=== PATIENT | female | born 1975 | race Caucasian/White ===

== ENCOUNTER 2016-02-19 07:41 | Day surgery (SDC) | payer SELFPAY ==
[2016-02-12 19:26] VITALS: BMI 29.0
[2016-02-19] MEDS ORDERED: HEPARIN NA (PORCINE) 5,000 UNITS/ML 1ML VIAL ONE (07:56)
[2016-02-19] MEDS ORDERED: HEPARIN NA (PORCINE) 5,000 UNITS/ML 1ML VIAL SQ ONE (08:20)
[2016-02-19] MEDS ORDERED: MIDAZOLAM HCL 2 MG/2 ML SINGLE DOSE VIAL ONE (08:43)
[2016-02-19] MEDS ORDERED: SUCCINYLCHOLINE CHLORIDE 200 MG/10 ML VIAL ONE (08:43)
[2016-02-19] MEDS ORDERED: PROPOFOL 20 ML ONE ×2 (08:43→10:05)
[2016-02-19] MEDS ORDERED: ROCURONIUM BROMIDE 50 MG/5 ML VIAL ONE ×3 (08:43→12:37)
[2016-02-19] MEDS ORDERED: DEXAMETHASONE SOD PHOSPHATE 4 MG/1 ML VIAL ONE (08:50)
[2016-02-19] MEDS ORDERED: ONDANSETRON 4 MG/2 ML VIAL ONE (08:50)
[2016-02-19] MEDS ORDERED: LIDOCAINE HCL 1%, 10 MG/ML (20ML VIAL) ONE (09:35)
[2016-02-19] MEDS ORDERED: LIDOCAINE 1%-EPI 1:100,000 30 ML MDV IJ ONE (09:35)
[2016-02-19] MEDS ORDERED: EPINEPHrine/PF 1 MG/1 ML (1:1,000) AMPULE ONE (09:36)
[2016-02-19] MEDS ORDERED: ceFAZolin SODIUM 1 GM VIAL ONE (09:52)
[2016-02-19] MEDS ORDERED: LIDOCAINE 1%/EPI 1:100000 (50 ML MULTI DOSE VIAL) INF ONE (10:44)
[2016-02-19] MEDS ORDERED: HYDROmorphone HCL/PF 1 MG/ML VIAL (FOR PYXIS CHARGING ONLY) ONE ×2 (11:11→13:54)
[2016-02-19] MEDS ORDERED: GLYCOPYRROLATE 0.2 MG/1 ML VIAL ONE (13:35)
[2016-02-19] MEDS ORDERED: NEOSTIGMINE METHYLSULFATE 0.5 MG/ML - 10 ML MDV ONE (13:35)
[2016-02-19] MEDS ORDERED: PROMETHAZINE HCL 25 MG/1 ML VIAL IVPUSH ONE ×2 (14:00→14:08)
[2016-02-19] MEDS ORDERED: PROMETHAZINE HCL 25 MG/1 ML VIAL ONE (14:02)
[2016-02-19] MEDS ORDERED: ACETAMINOPHEN INJECTION 100 ML IVPB ONE (14:10)
[2016-02-19] MEDS ORDERED: ONDANSETRON 4 MG/2 ML VIAL IVPB PRN (14:11)
[2016-02-19] MEDS ORDERED: morphine CARPU-JECT 10 MG/1 ML DISP.SYRIN IVPUSH PRN (14:11)
[2016-02-19] MEDS ORDERED: ACETAMINOPHEN 1000 MG/100 ML VIAL (NON FORMULARY) IVPB ONE ×2 (14:15→14:16)
[2016-02-19] MEDS ORDERED: LACTATED RINGERS SOLUTION 1,000 ML IV SCH ×2 (14:15→14:30)
[2016-02-19] MEDS ORDERED: HYDROmorphone HCL CARPU-JECT 1 MG/1 ML DISP.SYRIN IVPUSH PRN (14:16)
[2016-02-19] MEDS ORDERED: PROMETHAZINE HCL 25 MG/1 ML VIAL IVPUSH PRN (14:16)
[2016-02-19] MEDS ORDERED: HYDROmorphone HCL CARPU-JECT 1 MG/1 ML DISP.SYRIN IVPUSH ONE ×2 (14:50→15:10)
[2016-02-19] MEDS ORDERED: HYDROmorphone HCL CARPU-JECT 1 MG/1 ML DISP.SYRIN ONE (14:52)
--- NOTE | 2016-02-19 15:39 | OP ---
DATE OF OPERATION: 02/19/2016 TITLE OF PROCEDURE: Abdominoplasty with bilateral flank liposuction. Excision of sebaceous cyst on neck. PREOPERATIVE DIAGNOSES: Sebaceous cyst on neck. Abdominal lipodystrophy. POSTOPERATIVE DIAGNOSES: Sebaceous cyst on neck. Abdominal lipodystrophy. PROCEDURE: The patient is marked in the holding area. Risks, benefits and alternatives were discussed. She is awake and aware of all incisions and resulting scars. She is then brought to the operating room and placed in supine position. Ancef 2 g is given preoperatively and sequential compression stockings and BONNIE hose are applied. The patient had been given 5000 units of subcutaneous heparin preoperatively. Pressure points are carefully checked and padded by the surgical and anesthesia teams. She is then prepped and draped in the standard surgical fashion. The neck is addressed, first. A timeout is called. Patient, procedure, side and sites are verified. Incision is made over an existing flexion crease of the anterolateral right neck through which a subcutaneous cyst is identified and is dissected. The wound is copiously irrigated. Hemostasis is achieved and closure is performed in a series of interrupted 6-0 nylon suture. Attention is then directed toward the abdomen. Incision is made along the inferior border of the skin resection paddle, at which point dissection is carried down to the level of the abdominal wall fascia. Dissection is then carried to the level of the umbilicus which is circumcised and dissected on a wide fibrofatty stalk. The dissection is then continued to the xiphoid process in the midline and bilateral costal margins. A midline plication is then performed first with a series of interrupted buried [id number] 1 Prolene suture in the midline plication, followed by a running locking 1 Prolene suture both above and below the umbilicus leaving adequate space for the umbilicus for translocation. Hemostasis is meticulously achieved. The patient is brought to a flexed 30-degree position where the flap is transposed and excess skin and fat is removed. The flap is then inverted and using scissors, the sub-Hong fat is resected uniformly. Hemostasis is meticulously achieved once again. Copious irrigation is performed with normal saline, after which the skin is redraped and the position of the umbilicus is marked. A Star Trek pattern skin incision is made and a core of fat is removed from the abdominoplasty fat. The umbilicus is then translocated and secured in position. There are two 3-0 Biosyn sutures tacking the stalk to the lateral fascia. It should be noted also that 2 small transverse running buried 0 Prolene sutures are placed on either side of the umbilicus to correct a small bulge that was noted upon initial closure. This adequately corrected the problem. A 6 o'clock notch is removed from the umbilicus where the 6 o'clock flap of the Star Trek pattern is then inset into the base of the notch with a series of interrupted 4-0 nylon suture. The umbilicus is then re-inset with a series of interrupted buried deep dermal 3-0 Monocryl suture, followed by a running 5-0 nylon suture. A size 10 flat SHELLY drain is brought out through the lateral extent of the incision on the right side. It is going to the superior recess of the wound on the left side, staying in the lower recess of the wound. Closure is then performed of the flap to the inferior border of the skin wound with a series of interrupted superficial fascial Hong layer buried 2-0 Vicryl suture, followed by a series of interrupted buried deep dermal 3-0 Monocryl suture. Prior to final closure, liposuction tumescence is performed. A total of 300 mL of tumescent fluid is injected into each side of the flanks. The tumescence is given a full 20 minutes for hemostatic effect. Closure of the abdominal wound is continued. The drains are secured with 2-0 silk drain suture and placed to bulb suction, after which using a 4-mm cannula, liposuction is performed of the lower posterior flanks. A total lipoaspirate of 300 mL from the right side is yielded and 400 mL from the left side. The closure is then finished with a running subcuticular 3-0 Monocryl suture. Steri-Strips are applied. Abdominal binder is applied. Drains are placed to bulb suction. Awoken from anesthesia and maintained in a flexed position. Transferred to recovery without complication. JULIA DING M.D. [id number]
[2016-02-19] MEDS ORDERED: morphine CARPU-JECT 4 MG/1 ML DISP.SYRIN IVPUSH PRN (16:40)
[2016-02-19] MEDS ORDERED: HYDROmorphone *PCA* 10MG/50ML DISP.SYRIN PCA SCH (17:00)
[2016-02-20] MEDS ORDERED: HEPARIN NA (PORCINE) 5,000 UNITS/ML 1ML VIAL SQ SCH (06:00)
[2016-02-20] MEDS ORDERED: PROMETHAZINE HCL 25 MG/1 ML VIAL IVPB ONE (06:15)
[2016-02-20 06:29] VITALS: BP 122/68; PULSE 76; TEMP 98
[2016-02-20] MEDS ORDERED: ONDANSETRON 4 MG/2 ML VIAL IVPB PRN (08:50)
--- NOTE | 2016-02-20 11:13 | PN ---
Progress Note (short form) - Note Progress Note: 40F POD1 s/p abdominoplasty under GA-ETT with dilaudid IV INSURANCE BILLING CLERK for post op pain. Patient is doing well, INSURANCE BILLING CLERK d/c'd today, reports no anesthetic complications, AVSS.
[2016-02-20] MEDS ORDERED: OXYCODONE/APAP 5/325MG COMBO TABLET PO PRN (11:14)
--- NOTE | 2016-02-25 14:44 | PATH ---
Surgical Pathology Report Patient Name: ADOLFO HANKINS [facility]. Rec. #: [id number] /Age/Gender: 1975 (Age: 40) / F Account: [id number] Location: [facility] AMBULATORY Taken: 02/19/2016 Received: 02/19/2016 Reported: 02/25/2016 Physicians: Manuel Maldonado Specimen(s) Received A: RIGHT NECK CYST B: ABDOMINAL TISSUE Clinical History Cosmetic Final Diagnosis A. NECK, RIGHT, CYST, EXCISION: EPIDERMAL INCLUSION CYST. B. ABDOMINAL TISSUE, ABDOMINOPLASTY: SKIN AND ADIPOSE TISSUE, DESCRIBED (GROSS EXAMINATION ONLY). Electronically Signed Theodora Young M.D. Gross Description A. Received in formalin, labeled "right neck cyst," is a 1.5 x 0.6 x 0.2 cm willis-yellow, irregular, unoriented portion of soft tissue, consistent with a cyst. The specimen is serially sectioned and entirely submitted in one cassette. B. Received in formalin, labeled "abdominal tissue," is a 1144 g aggregate of 2 willis, triangular portions of unoriented skin with underlying soft tissue. The specimens measure 28.0 x 20.0 x 5.5 cm in aggregate. The epidermal surface from one of the portions displays a 5 cm in greatest dimension tattoo. Sectioning reveals unremarkable yellow, lobulated adipose tissue. No sections are submitted, gross only. 02/20/2016 saudi02/20/2016
== END 2016-02-20 14:02 | disposition home or self-care (01) ==
LOC: FASU 07:41 → FM/S 16:04 → FASU 02-20 14:02
PROVIDERS: ATTEND Plastic Surgery
PROC: 0HB4XZX Excision of Neck Skin, External Approach, Diagnostic (ICD-10-PCS; 2016-02-19)
PROC: 0J080ZZ Alteration of Abdomen Subcutaneous Tissue and Fascia, Open Approach (ICD-10-PCS; principal; 2016-02-19 09:56)
PROC: 0J083ZZ Alteration of Abdomen Subcutaneous Tissue and Fascia, Percutaneous Approach (ICD-10-PCS; 2016-02-19 09:56)
DX: L72.3 Sebaceous cyst (principal)
CPT/HCPCS: 84703; 88300-TC; 88304-TC; 94760; J1644

== ENCOUNTER 2020-03-03 06:12 | Day surgery (SDC) | payer SELFPAY ==
[2020-02-26 13:44] VITALS: BMI 29.3
[2020-03-03] MEDS ORDERED: BUPIVACAINE HCL/PF 0.25% (2.5MG/ML) 10 ML VIAL ONE (07:27)
[2020-03-03] MEDS ORDERED: LIDOCAINE HCL 1%, 10 MG/ML (20ML VIAL) ONE ×2 (07:27→08:15)
[2020-03-03] MEDS ORDERED: EPINEPHrine/PF 1 MG/1 ML (1:1,000) AMPULE ONE ×2 (07:27→08:15)
[2020-03-03] MEDS ORDERED: ROCURONIUM BROMIDE 50 MG/5 ML SYRINGE ONE ×2 (07:39→10:37)
[2020-03-03] MEDS ORDERED: MIDAZOLAM HCL 2 MG/2 ML SINGLE DOSE VIAL ONE ×2 (07:39)
[2020-03-03] MEDS ORDERED: fentaNYL CITRATE 250 MCG/5 ML VIAL ONE (07:39)
[2020-03-03] MEDS ORDERED: HYDROmorphone HCL/PF 1 MG/ML VIAL ONE (07:39)
[2020-03-03] MEDS ORDERED: PROPOFOL 20 ML ONE ×8 (07:39→12:32)
[2020-03-03] MEDS ORDERED: ONDANSETRON 4 MG/2 ML VIAL IVPUSH PRN (08:05)
[2020-03-03] MEDS ORDERED: oxyCODONE HCL 5 MG TABLET PO PRN ×3 (08:05→14:14)
[2020-03-03] MEDS ORDERED: LACTATED RINGERS SOLUTION 1,000 ML IV SCH ×2 (08:15→14:15)
[2020-03-03] MEDS ORDERED: NEOSTIGMINE METHYLSULFATE 0.5 MG/1 ML - 10 ML MDV ONE (13:26)
[2020-03-03] MEDS ORDERED: BACITRACIN 15 GM TUBE TOPICAL OINTMENT ONE (13:46)
[2020-03-03] MEDS ORDERED: ONDANSETRON 4 MG/2 ML VIAL IVPB PRN (14:14)
[2020-03-03] MEDS ORDERED: MEPERIDINE HCL 50 MG/ML VIAL IVPUSH ONE (14:25)
[2020-03-03] MEDS ORDERED: ONDANSETRON 4 MG/2 ML VIAL ONE (14:27)
[2020-03-03] MEDS ORDERED: MEPERIDINE HCL 50 MG/ML VIAL ONE (14:37)
[2020-03-03] MEDS ORDERED: PROMETHAZINE HCL 25 MG/1 ML VIAL ONE (16:07)
[2020-03-03] MEDS ORDERED: oxyCODONE HCL 5 MG TABLET ONE (16:18)
[2020-03-03 16:27] VITALS: TEMP 97.8
[2020-03-03 17:33] VITALS: BP 111/67; PULSE 72
[2020-03-04] MEDS ORDERED: PANTOPRAZOLE 40 MG TABLET PO SCH (10:00)
== END 2020-03-03 17:25 | disposition home or self-care (01) ==
LOC: FASU 06:12
PROVIDERS: ATTEND Plastic Surgery
PROC: 0J093ZZ Alteration of Buttock Subcutaneous Tissue and Fascia, Percutaneous Approach (ICD-10-PCS; 2020-03-03)
PROC: 0J0M3ZZ Alteration of Left Upper Leg Subcutaneous Tissue and Fascia, Percutaneous Approach (ICD-10-PCS; 2020-03-03)
PROC: 0J083ZZ Alteration of Abdomen Subcutaneous Tissue and Fascia, Percutaneous Approach (ICD-10-PCS; principal; 2020-03-03 09:02)
DX: Z41.1 Encounter for cosmetic surgery (principal)
CPT/HCPCS: 94760; J2175

== ENCOUNTER 2020-05-23 07:40 | Day surgery (SDC) | payer SELFPAY ==
[2020-05-20 14:04] VITALS: BMI 29.8
[2020-05-23] MEDS ORDERED: LIDOCAINE HCL 1%, 10 MG/ML (20ML VIAL) ONE (08:36)
[2020-05-23] MEDS ORDERED: PROPOFOL 20 ML ONE ×3 (09:24)
[2020-05-23] MEDS ORDERED: fentaNYL CITRATE 250 MCG/5 ML VIAL ONE (09:24)
[2020-05-23] MEDS ORDERED: MIDAZOLAM HCL 2 MG/2 ML SINGLE DOSE VIAL ONE (09:24)
[2020-05-23] MEDS ORDERED: ROCURONIUM BROMIDE 50 MG/5 ML SYRINGE ONE (09:24)
[2020-05-23] MEDS ORDERED: NEOSTIGMINE METHYLSULFATE 0.5 MG/ML - 10 ML MDV ONE (11:31)
[2020-05-23] MEDS ORDERED: oxyCODONE HCL 5 MG TABLET PO PRN ×4 (13:01→13:03)
[2020-05-23] MEDS ORDERED: PROMETHAZINE HCL 25 MG/1 ML VIAL IVPUSH PRN (13:01)
[2020-05-23] MEDS ORDERED: ONDANSETRON 4 MG/2 ML VIAL IVPUSH PRN (13:01)
[2020-05-23] MEDS ORDERED: ONDANSETRON 4 MG/2 ML VIAL IVPB PRN (13:03)
[2020-05-23] MEDS ORDERED: LACTATED RINGERS SOLUTION 1,000 ML IV SCH (13:15)
[2020-05-23] MEDS ORDERED: ONDANSETRON 4 MG/2 ML VIAL ONE (13:19)
[2020-05-23 13:57] VITALS: TEMP 97.6
[2020-05-23 14:27] VITALS: BP 129/90; PULSE 84
== END 2020-05-23 14:56 | disposition home or self-care (01) ==
LOC: FASU 07:40
PROVIDERS: ATTEND Plastic Surgery
CPT/HCPCS: 84703; 94760